=== PATIENT | male | born 1985 | race Caucasian/White ===

== ENCOUNTER 2025-02-26 | Outpatient (REF) | payer MEDICARE, SELFPAY ==
[2025-02-27 14:25] LABS: Amphetamine Screen Urine POSITIVE (Not Detect); Barbiturates, Urine Not Detected (Not Detect); Benzodiazepines Screen Urine Not Detected (Not Detect); Buprenorphine Scr Not Detected (Not Detect); Cannabinoid Screen Urine POSITIVE (Not Detect); Cocaine Screen Urine Not Detected (Not Detect); Fentanyl, urine Not Detected (Not Detect); Methadone Screen, Urine Not Detected (Not Detect); Opiate Screen Urine Not Detected (Not Detect); Oxycodone Screen Urine Not Detected (Not Detect); Phencyclidine Screen Urine Not Detected (Not Detect)
== END 2025-02-26 00:01 | disposition home or self-care (01) ==
LOC: HO.LNP
PROVIDERS: Visit Provider Psychiatry & Neurology Psychiatry
DX: F15.20 Other stimulant dependence, uncomplicated (principal); F12.20 Cannabis dependence, uncomplicated; F20.0 Paranoid schizophrenia
CPT/HCPCS: 80307

== ENCOUNTER 2025-02-28 12:29 | Emergency (ER) | payer OTHER, MEDICARE, SELFPAY ==
[2025-02-28 12:33] VITALS: BP 120/75; PULSE 72; RESP 18; TEMP 36.9; O2SAT 97; BMI 34.5
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
[2025-02-28 13:22] LABS: MANUAL DIFF FLAG NO
[2025-02-28 13:23] LABS: Basophils Percent Auto 0.5 % (0-2); Eosinophils Absolute Auto 0.1 X10*3/uL (0.0-0.4); Hematocrit 43.3 % (42.0-52.0); Imm Gran Abs Auto 0.01 X10*3/uL (0.00-0.03); Imm Gran Pct Auto 0.2 % (0.0-0.4); Lymphocytes Absolute Auto 2.1 X10*3/uL (1.2-4.9); Lymphocytes Percent Auto 32.1 % (20-40); Mean Corpuscular HGB Conc 34.6 g/dl (31.0-36.0); Mean Corpuscular Hemoglobin 28.6 pg (27.0-33.0); Mean Corpuscular Volume 82.6 fL (80.0-98.0); Mean Platelet Volume 9.4 fL (9.4-12.4); Monocytes Absolute Auto 0.5 X10*3/uL (0.1-1.2); Monocytes Percent Auto 7.9 % (2-11); Neutrophils Absolute Auto 3.8 x10*3/uL (2.0-8.3); Neutrophils Percent Auto 57.3 % (45-73); Platelet Count 181 X10*3/uL (160-400); Red Blood Count 5.24 X10*6/uL (4.60-5.80); White Blood Count 6.6 X10*3/uL (4.8-10.8)
[2025-02-28 13:38] LABS: Alanine Aminotransferase 48 U/L (0-40); Albumin Level 4.4 g/dL (3.5-5.0); Alkaline Phosphatase 90 U/L (39-117); Anion Gap 13 (12-20); Aspartate Amino Transferase 29 U/L (5-37); Bilirubin Total 0.4 mg/dL (0.0-1.0); Blood Urea Nitrogen 13 mg/dL (9-16); Calcium 8.8 mg/dL (8.4-10.2); Carbon Dioxide 27 mmol/L (22-29); Chloride 103 mmol/L (96-108); Creatinine Clr Calc Pharmacy 119.9; Estimated Glomerular Filt Rate > 60; Ethanol < 10 mg/dL; Glucose Random 89 mg/dL (60-115); Sodium 139 mmol/L (135-145); Total Protein 7.5 g/dL (6.5-8.0)
--- NOTE | 2025-02-28 15:07 | MHC.CARE ---
Pt does not meet the criteria for a higher level of care and will D/C to follow up with current providers. ED provider in agreement.
[2025-02-28 15:36] VITALS: BP 132/88; PULSE 86; RESP 14; TEMP 37; O2SAT 96
== END 2025-02-28 15:39 | disposition home or self-care (01) ==
PROVIDERS: Registered Nurse Emergency; Emergency Provider Emergency Medicine
DX: F15.10 Other stimulant abuse, uncomplicated (principal); F22 Delusional disorders; F25.9 Schizoaffective disorder, unspecified; Z51.81 Encounter for therapeutic drug level monitoring; Z79.899 Other long term (current) drug therapy; Z87.891 Personal history of nicotine dependence
CPT/HCPCS: 36415; 80053; 80307; 85025; 99284; S9485

== ENCOUNTER 2025-03-05 11:30 | Outpatient (RCR) | payer MEDICARE, SELFPAY ==
[2025-02-26 09:50] VITALS: BMI 34.4
[2025-02-26 09:52] VITALS: BP 102/78; PULSE 96; TEMP 37.2
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
--- NOTE | 2025-02-27 15:43 | PC.NURSE ---
Called Roby's mother Emely and left her a second message for her to call me to confirm Roby's medication list. Awaiting a call back.
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
--- NOTE | 2025-02-28 08:03 | PC.NURSE ---
I spoke to Roby's mother to confirm his medication list from inpatient. She shared that Roby is very psychotic, staying up all night, possibly using substances. She stated this is the same cycle she has been dealing with for several years. She reports he has been taking his medications. [facility] staff is aware.
--- NOTE | 2025-02-28 13:10 | HO.PHPPROGNO ---
Subjective Subjective Date of Service: 02/28/25 Reason For Visit: schizophrenia,GAIL Diagnostics Vital Signs (24Hr): BMI result Body Mass Index 34.4 Assessment & Plan Certification I certify that partial hospital treatment is medically necessary due to the symptoms and problems resulting from the patient's mental illness and the failure to treat the patient at the partial hospital level of care would likely result in the patient requiring inpatient psychiatric care which could not be prevented at a less intensive level of care. Total time managing care of this patient today ____ minutes. Discharge Plan Discharge Attending provider: Guera Reyes Medications: New benztropine 0.5 mg tablet 0.5 mg PO BID Qty: 20 0RF sertraline 25 mg tablet 25 mg PO DAILY Qty: 14 0RF metformin 500 mg tablet 250 mg PO BID Qty: 20 0RF No Action olanzapine 5 mg Tablet 5 mg PO Q6H PRN (Reason: Psychosis) trazodone 100 mg Tablet 100 mg PO BEDTIME PRN (Reason: Insomnia) omeprazole 20 mg Capsule,Delayed Release(Dr/Ec) 20 mg PO DAILY PRN (Reason: Acid Reflux) albuterol sulfate 90 mcg/actuation Hfa Aerosol Inhaler 1 puff INHALATION Q6H PRN (Reason: SOB) ezetimibe 10 mg Tablet 10 mg PO DAILY emtricitabine-tenofovir (TDF) [Truvada] 200-300 mg Tablet 1 tab PO DAILY Vivitrol 380 mg Suspension,Extended Rel Recon 380 mg IM QMONTH paliperidone palmitate 156 mg/mL Syringe 156 mg IM QMONTH naloxone 4 mg/actuation [place],Non-Aerosol See Rx Instructions .ROUTE .COMPLEX PRN (Reason: Overdose) Rx Instructions: spray 1 dose into ONE nostril; alternate nostrils w each dose until help arrives Q2-3 minutes. Stand Alone Forms: Patient Portal Discharge page Print Language: Indonesian
--- NOTE | 2025-02-28 13:11 | PM.EVENT ---
Event Note Date of Service: 02/28/25 Event Note: I was approached by staff who had spoke briefly with patient's mother regarding medication list. Patient's mother had reported to staff member some concerns related to safety in the home. I reached out to patient's mother who complains that the patient has been very psychotic, paranoid, not sleeping at night and constantly texting his mother at all hours that people are trying to get into the house. He has been screwing down the front door inside doors potentially obstructing the ability to leave the house. She also mentions that he was up roaming about the house, pacing, ranting, responding to internal stimuli. He believes that the neighbors are out to get us, and he sees them as a threat to him in his family. Mom expresses concerns that patient may get confused in such a state, I'm worried he could do something wrong out of his need to protect me . Mom shares that she in fact found a large knife in the sink this morning ?that was definitely not there before. He would have no reason for using that and I'm just was worried that Vish was pacing around the house last night with it (the knife). She adds that he has been gravitating toward concerns around how to defend himself with various objects and . Mom also complains of ongoing methamphetamine use by patient. She feels it has been out of control for a long time and has been brought him in for court-mandated treatment filing section 35s, filing sectioned 12. ?I am just at the edge and I have rope. I do not feel safe with him at home, I do not know how to get him help but if he can not stop using then he needs to find him a intermediate to live in . She states this has been going on for long time and she does not know how to get him the help he needs or to encourage him to stop using. Patient explicitly told me yesterday during our appointment that he had no interest in cutting back or stopping drug use. He also reported CT-AH that his neighbors were commanding patient to kill himself and his family, but denies having any wish to do so. He did not demonstrate any insight into his illness. He has not demonstarted any concerning behaviors at the program thus far, nonethless we will plan to have patient assessed by crisis this afternoon, given safety concerns reported in the home. Time Spent With Patient Time: Total time managing care of this patient today _20___ minutes.
--- NOTE | 2025-02-28 14:51 | PC.NURSE ---
Addendum entered by Macrina Zepeda RN 02/28/25 15:11: Patient has a long history of using Crystal Meth. Tox screen positive for Amphetamines 02/26/25. Original Note: Roby's mother Emely called me again after I spoke with her this morning. She reports that Roby has been up all night and has been paranoid. He has been texting her even thought they are in the same house texting her that people are trying to get in. They are trying to kidnap you. He is putting screws in the front door and side door. He thinks they are out to kill him. Reviewed above information with Dr. Reyes. Dr. Reyes spoke to Emely patient's mother afterwards and placed Roby on a section 12 A for a crisis evaluation based on their conversation.
--- NOTE | 2025-02-28 17:00 | HO.PHP ---
PHP staff member escorted Roby to the ED with Security to get assessed. No issues were presented.
--- NOTE | 2025-03-01 09:36 | HO.PHP ---
Vish did not show up for programming this morning. Pt was called but Vish did not answer. Pt's emergency contact Emely (pt's mother) was contacted, Emely stated she thought he was unable to return to [facility] due to his being assessed by crisis yesterday. Stated she was informed he could not return to [facility] by ED staff. Emely stated Vish was home sleeping after being up for over 40 hours and informed staff she would message him to contact [facility] when he wakes up. Emely states she is uncertain if Vish will want to return to [facility] tomorrow. No safety concerns.
--- NOTE | 2025-03-01 15:44 | HO.PHP ---
Pt's case was opened and reviewed in treatment team.
--- NOTE | 2025-03-01 17:10 | HO.PHP ---
Assayer called Vish at roughly 5pm, pt stated he was going through something right now and did not know if he would be returning to [facility]. Stated he will see how he feels in the morning. Pt was with his mother during the phone call. His mother reported he received his invega shot and another shot today so was resting for most of the day. Pt appreciated the opportunity to return to [facility]. States he will come if he wakes up feeling better. No safety concerns.
== END 2025-03-05 23:59 | disposition home or self-care (01) ==
LOC: HO.PHPA 11:30
PROVIDERS: Visit Provider Psychiatry & Neurology Psychiatry
DX: F25.1 Schizoaffective disorder, depressive type (principal); Z79.899 Other long term (current) drug therapy
CPT/HCPCS: 90791; 90853

== ENCOUNTER 2025-04-19 09:42 | Outpatient (REF) | payer MEDICARE, SELFPAY ==
[2025-04-19 10:54] LABS: Cannabinoid Screen Urine POSITIVE (Not Detect)
== END 2025-04-19 09:43 | disposition home or self-care (01) ==
LOC: HO.LNP 09:42
PROVIDERS: Visit Provider Psychiatry & Neurology Psychiatry
DX: F15.20 Other stimulant dependence, uncomplicated (principal); F20.0 Paranoid schizophrenia; F12.20 Cannabis dependence, uncomplicated
CPT/HCPCS: 80307

== ENCOUNTER → 2025-04-19 12:45 | Outpatient (BNV) | payer OTHER, MEDICARE, SELFPAY | PROVIDERS: Visit Provider Psychiatry & Neurology Psychiatry | DX: F15.90 Other stimulant use, unspecified, uncomplicated (principal); F25.1 Schizoaffective disorder, depressive type | CPT/HCPCS: 90792; 99213; 99214 ==

== ENCOUNTER 2025-05-03 12:45 | Outpatient (RCR) | payer OTHER, MEDICARE, SELFPAY ==
[2025-04-18 11:02] VITALS: BMI 34.4
[2025-04-18 11:03] VITALS: BP 126/84; PULSE 68; TEMP 36.9
--- NOTE | 2025-04-18 14:13 | PC.ADMIT ---
Patient is a 39 year old single male who was referred to [facility] by [facility] where he was admitted from 03/29-04/12/25. Patient has a history of Schizophrenia, paranoid type, stimulant dependence, and cannabis dependence. According to [facility] records patient reportedly was brought to [facility] by ambulance on a section 12 d/t worsening AH that threatened to harm him and his family. Family reportedly found a home made spear in his room. Patient did not express harm toward himself or others however in the past he has experienced command hallucinations. Patient's has a significant history of using crystal meth and crack cocaine when Meth is not available. Patient reports history of having a seizure related to doing too much meth and crack at the same time. Patient also has a history of non compliance with medications. Patient has a history of many inpatient LOC hospitalizations. Patient has a history of being on a section 35 as his mother petitioned the court secondary to patient delusional statements and substance use. At that time patient was admitted to [facility] in [place], [place]. from 12/13-01/21/25 and after discharged was referred to [facility]. Patient attended [facility] for 3 days and was discharged on 03/02/25 as he was admitted to inpatient LOC. Patient is currently alert and oriented x4. He is calm and cooperative. He presented with moderately depressed mood and affect. He denied SI, no HI. He reports he has been taking his medications as prescribed since discharge from the hospital. Stated his mother whom he lives with helps him with his medications. He stated he has not used any substances except Marijuana since discharge from the hospital. Stated he is feeling better. Reports for the first time he has not heard for the past few days. He is amazed by this. We discussed medications and how they help with his symptoms along with abstinence from Methamphetamines and Cocaine. Patient reports his longest period of sobriety has been a year. He appears more motivated for treatment at this time. His thoughts appeared to be clear and organized. Patient stated his goal regarding treatment at [facility] is to get more support and to talk more about his use and have sober friends. Medications updated with [facility] discharge paperwork and patient. Patient reports he is taking his medications every day.
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
--- NOTE | 2025-04-26 15:18 | HO.PHP ---
Pt's case has been opened and reviewed in treatment team.
--- NOTE | 2025-05-01 10:11 | HO.IOP ---
Patient's mother called concerned that her son may be using drugs. I met with Roby who stated he had a relapse the other day. He stated he was feeling lonely and not good about himself at the time. I encouraged Roby to talk about the relapse in groups and process the events that led up to relapsing.
--- NOTE | 2025-05-01 21:28 | P.PNPSP_ITS ---
Subjective Subjective Date of Service: 05/01/25 Reason For Visit: schizophrenia Interim History: Patient seen for follow-up, anticipating discharge at the end of program today.? Reports no acute issues or concerns. Medication compliant, medications well- tolerated. Denies any adverse effects. Still endorses AH, but says? it's been okay, getting a little better . Not take anything PRN for the voices, but was open to a small dose of olanzapine 2.5 mg to take as needed which he was open to trying. Also complaints of infrequent bowel movements/constipation/straining. He is not on a bowel regime. We reviewed his diet and exercise. He is encouraged to make some improvements in lifestyle. Mood is stable.? Denies any hopelessness or SI. Denies thoughts of harming self or others at this time. Denies any aggressive ideation or HI. Denies any paranoia or AH or VH. Sleep, appetite, energy stable. Medication Compliance: Yes Side effects from medications: Yes (constipation, as noted) Attending Groups: Yes Review of Systems Acute medical concerns: No Mental Status Exam Mental Status Exam Narrative: Alert, oriented, in no acute distress. Calm, cooperative, polite, pleasant but limited historian. Myopic, glasses. No psychomotor agitation or neurovegetative retardation. Eye contact maintained. Mood good , affect anxious, brighter. Speech normal. Thought process linear, coherent. Thought content related to stressors, endorses chronic AH, denies any CTAH, denies any aggressive ideation, intention urge or plan. Denies any hopelessness or SI. Future-oriented, No paranoid or delusional content elicited. Insight poor and judgment fair but adequate. Diagnostics Vital Signs (24Hr): BMI result Body Mass Index 34.4 Assessment & Plan Assessment & Plan (1) Stimulant use disorder: Status: Acute Code(s): F15.90 - Other stimulant use, unspecified, uncomplicated (2) Schizoaffective disorder, depressive type: Status: Acute Code(s): F25.1 - Schizoaffective disorder, depressive type Plan Discharge from [facility] start Colace 100 mg BID until BM regulated then on a PRN basis Continue regular medications with trazodone at 50 mg PRN sleep No refills needed Will defer further medication management to outpatient provider *Safety plan reviewed *Discharge diagnoses, treatment course, discharge plan have been reviewed with patient (including medication regime, medication management, potential side effects) as well as treatment rationale were also revisited *Discharge paperwork signed and given to patient, copy sent for scanning to chart Patient educated on: diagnosis, medication risk/benefits and substance abuse Informed Consent: understands Reason for contiued partial hosp. stay Substantial Risk for: inability to function and med/psych decompensation Certification I certify that partial hospital treatment is medically necessary due to the symptoms and problems resulting from the patient's mental illness and the failure to treat the patient at the partial hospital level of care would likely result in the patient requiring inpatient psychiatric care which could not be prevented at a less intensive level of care. Total time managing care of this patient today __30__ minutes. Discharge Plan Discharge Attending provider: Guera Reyes Medications: New olanzapine 2.5 mg tablet 2.5 mg PO BID PRN (Reason: agitation/psychosis) Qty: 30 0RF Continued olanzapine 5 mg Tablet,Disintegrating 5 mg PO DAILY naltrexone 50 mg Tablet 50 mg PO DAILY hydroxyzine HCl 50 mg Tablet 50 mg PO Q8H PRN (Reason: Anxiety) pantoprazole 40 mg Tablet,Delayed Release (Dr/Ec) 40 mg PO DAILY olanzapine 15 mg Tablet,Disintegrating 15 mg PO BEDTIME Invega Sustenna 234 mg/1.5 mL Syringe 234 mg IM QMONTH docusate sodium [Colace] 100 mg capsule 100 mg PO BID PRN (Reason: constipation) Qty: 30 0RF benztropine 0.5 mg tablet 0.5 mg PO BID Qty: 20 0RF albuterol sulfate 90 mcg/actuation Hfa Aerosol Inhaler 2 puff INHALATION Q6H PRN (Reason: Wheezing) ezetimibe 10 mg Tablet 10 mg PO DAILY emtricitabine-tenofovir (TDF) [Truvada] 200-300 mg Tablet 1 tab PO DAILY Changed trazodone 100 mg Tablet 50 - 100 mg PO BEDTIME PRN (Reason: insomnia) Qty: 14 0RF No Action polyethylene glycol 3350 17 gram Powder In Packet 17 g PO DAILY cyanocobalamin (vitamin B-12) 1,000 mcg Tablet 1,000 mcg PO DAILY Patient Education: Schizoaffective Disorder (ED), Schizoaffective Disorder (DC) Print Language: Indonesian
[2025-05-03 15:15] LABS: Cannabinoid Screen Urine POSITIVE (Not Detect)
--- NOTE | 2025-05-03 23:17 | P.PNPSP_ITS ---
Subjective Subjective Date of Service: 05/03/25 Reason For Visit: schizophrenia Interim History: Patient seen per staff concern as he had presented as more psychotic yesterday and his pending discharge was deferred. Presenting today as pleasant but more distracted and paranoid today, concerned about voices that continue to bother him and says he is certain they are real and is preccupied with AH. He is willing to increase his dose of Zyprexa tonight to 20 mg and may consider increasing dose of AM Zyprexa to 7.5 mg from 5 mg in needed. Denies any thoughts, urge, intention or plan to harm anyone or self. He admits to ongoing substance use, but minimizes its contribution to his MH issues. He denies any thoughts of harming self or others. Denies any CTAH. Medication Compliance: Yes Side effects from medications: No Attending Groups: Yes Review of Systems Acute medical concerns: No Mental Status Exam Mental Status Exam Narrative: Alert, oriented, in no acute distress. Calm, cooperative, polite, pleasant but limited historian. Myopic, glasses. No psychomotor agitation or neurovegetative retardation. Eye contact maintained. Mood agitated, affect anxious, mood congruent. Speech normal. Thought process linear, coherent. Thought content related to stressors, paranoid delusions and AH, denies any CTAH but says voices are saying he and his mother deserve to be (which he says he does not agree with, endorses paranoia but otherwise no mention of chronic delusional content. Denies any aggressive ideation, intention urge or plan. Denies any SI. Insight poor and judgment fair but adequate. Diagnostics Vital Signs (24Hr): BMI result Body Mass Index 34.4 Labs Labs: Laboratory Results - last 48 hr 05/03/25 10:08 Urine Opiates Screen Not Detected Ur Buprenorphine Scrn Not Detected Ur Oxycodone Screen Not Detected Urine Methadone Screen Not Detected Urine Fentanyl Screen Not Detected Ur Barbiturates Screen Not Detected Ur Phencyclidine Scrn Not Detected Ur Amphetamines Screen POSITIVE H U Benzodiazepines Scrn Not Detected Urine Cocaine Screen POSITIVE H U Marijuana (THC) Screen POSITIVE H Assessment & Plan Assessment & Plan (1) Stimulant use disorder: Status: Acute Code(s): F15.90 - Other stimulant use, unspecified, uncomplicated (2) Schizoaffective disorder, depressive type: Status: Acute Code(s): F25.1 - Schizoaffective disorder, depressive type Plan extend PHP increase olanzapine to 20 mg qhs continue olanzapine 2.5 mg BID prn (encouraged to utilize) continue other regular medications with trazodone at 50 mg PRN sleep Routine lab work from 02/28/25 reviewed UDS obtained today - returned positive for amphetamines, cocaine, marijuana Continue to monitor as per protocol Patient educated on: diagnosis, medication risk/benefits and substance abuse Informed Consent: understands Reason for contiued partial hosp. stay Substantial Risk for: rapid decompensation and med/psych decompensation Certification I certify that partial hospital treatment is medically necessary due to the symptoms and problems resulting from the patient's mental illness and the failure to treat the patient at the partial hospital level of care would likely result in the patient requiring inpatient psychiatric care which could not be prevented at a less intensive level of care. Total time managing care of this patient today __40__ minutes. Discharge Plan Discharge Attending provider: Guera Reyes Medications: New olanzapine 2.5 mg tablet 2.5 mg PO BID PRN (Reason: agitation/psychosis) Qty: 30 0RF olanzapine 20 mg tablet 20 mg PO BEDTIME Qty: 30 0RF Rx Instructions: =DOSE INCREASE= Continued olanzapine 5 mg Tablet,Disintegrating 5 mg PO DAILY naltrexone 50 mg Tablet 50 mg PO DAILY hydroxyzine HCl 50 mg Tablet 50 mg PO Q8H PRN (Reason: Anxiety) pantoprazole 40 mg Tablet,Delayed Release (Dr/Ec) 40 mg PO DAILY olanzapine 15 mg Tablet,Disintegrating 15 mg PO BEDTIME Invega Sustenna 234 mg/1.5 mL Syringe 234 mg IM QMONTH docusate sodium [Colace] 100 mg capsule 100 mg PO BID PRN (Reason: constipation) Qty: 30 0RF benztropine 0.5 mg tablet 0.5 mg PO BID Qty: 20 0RF albuterol sulfate 90 mcg/actuation Hfa Aerosol Inhaler 2 puff INHALATION Q6H PRN (Reason: Wheezing) ezetimibe 10 mg Tablet 10 mg PO DAILY emtricitabine-tenofovir (TDF) [Truvada] 200-300 mg Tablet 1 tab PO DAILY Changed trazodone 100 mg Tablet 50 - 100 mg PO BEDTIME PRN (Reason: insomnia) Qty: 14 0RF No Action polyethylene glycol 3350 17 gram Powder In Packet 17 g PO DAILY cyanocobalamin (vitamin B-12) 1,000 mcg Tablet 1,000 mcg PO DAILY Patient Education: Schizoaffective Disorder (ED), Schizoaffective Disorder (DC) Print Language: Nepali
--- NOTE | 2025-05-08 15:04 | HO.PHP ---
Roby contacted the program this morning stating that he would like to discharge himself. [facility] staff members attempted to follow up with him to collect discharge information but was unable to get a hold of him or leave a VM.
== END 2025-05-03 23:59 | disposition home or self-care (01) ==
LOC: HO.PHPA 12:45
PROVIDERS: Visit Provider Psychiatry & Neurology Psychiatry
DX: F25.1 Schizoaffective disorder, depressive type (principal); F15.90 Other stimulant use, unspecified, uncomplicated; Z79.899 Other long term (current) drug therapy
CPT/HCPCS: 80307; 90791; 90853